=== PATIENT | female | born 1955 | race Caucasian/White ===

== ENCOUNTER → 2018-02-15 16:58 | Outpatient (CLI) | payer BC ==
[2014-03-26 06:12] VITALS: BMI 26.7
[~2018-02-15 16:58] MED LIST: CATAPRES0.1 MG PO; LORTAB 5/500 TA1 TA2 PO; PRILOSEC20 MG PO
== END | disposition home or self-care (01) ==
LOC: D.MAMMO 08:00
DX: Z12.31 Encounter for screening mammogram for malignant neoplasm of breast (principal)